=== PATIENT | female | born 1970 | race African-American/Black ===

== ENCOUNTER 2017-07-11 17:39 | Emergency (ER) | payer MEDICAID, OTHER ==
[~2017-07-11] VITALS: Ht 175.3 cm; Wt 99.1 kg
[~2017-07-11 17:39] MED LIST: IBUP-2076 PO; [UNRECOGNIZED DRUG - CODE] MM
[2017-07-11 18:38] LABS: BASOPHILS % (AUTO) 0.9 % (0.0-2.0); EOSINOPHILS % (AUTO) 2.4 % (1.0-6.0); HEMATOCRIT 38.3 % (36-46); HEMOGLOBIN 12.9 g/dL (12.0-16.0); LYMPHOCYTES # (AUTO) 2.5 K/uL (1.0-4.8); LYMPHOCYTES % (AUTO) 38.5 % (22.0-44.0); MEAN CORPUSCULAR HEMOGLOBIN 27.4 pg (26.0-34.0); MEAN CORPUSCULAR HGB CONC 33.6 G/dL (31.0-37.0); MEAN CORPUSCULAR VOLUME 82 fL (80-100); MONOCYTES # (AUTO) 0.5 K/uL (0.1-1.0); MONOCYTES % (AUTO) 7.5 % (2.0-9.0); NEUTROPHILS # (AUTO) 3.3 K/uL (1.8-7.7); NEUTROPHILS % (AUTO) 50.7 % (40.0-70.0); PLATELET COUNT (AUTO) 336 K/uL (150-450); RED BLOOD CELL COUNT(AUTO) 4.69 MIL/uL (4.00-5.20); RED CELL DISTRIBUTION WIDTH 14.2 % (11.5-14.5)
[2017-07-11 18:42] LABS: ANION GAP 6 mmol/L (8-16); CALCIUM, TOTAL 9.8 mg/dL (8.8-10.5); CARBON DIOXIDE 30 mmol/L (22-29); CHLORIDE 104 mmol/L (98-107); CREATININE 1.05 mg/dL (0.60-1.30); GLOMERULAR FILTR. RATE CALC > 60 mL/min (>60); GLUCOSE,RANDOM 94 mg/dL (70-110); POTASSIUM 4.5 mmol/L (3.5-5.1); SODIUM SERUM 140 mmol/L (136-145); UREA NITROGEN, BLOOD 18 mg/dL (7-18)
[2017-07-11 18:47] LABS: PROTHROMBIN TIME 10.1 SEC (9.4-11.6)
[2017-07-11 18:52] LABS: B-TYPE NATRIURETIC PEPTIDE 18 pg/mL (0-100)
[2017-07-11 19:08] LABS: ALANINE AMINOTRANSFERASE 25 U/L (12-78); ALKALINE PHOSPHATASE 98 U/L (46-116); ASPARTATE AMINOTRANSFERASE 14 U/L (15-37); BILIRUBIN,TOTAL 0.2 mg/dL (0.1-1.0); CREATINE KINASE MB 0.7 ng/mL (0-5); CREATINE KINASE, TOTAL 82 U/L (26-192); TOTAL PROTEIN, SERUM 8.1 g/dL (6.4-8.2)
[2017-07-11] MEDS ORDERED: ATENOLOL 50 MG TABLET PO ONE (20:00)
[2017-07-11 20:48] VITALS: BP 177/80
== END 2017-07-11 20:56 | disposition home or self-care (01) ==
LOC: EMS 17:40
DX: I49.3 Ventricular premature depolarization (principal); I10 Essential (primary) hypertension; F17.210 Nicotine dependence, cigarettes, uncomplicated
CPT/HCPCS: 83735; 93005; 99285